=== PATIENT | male | born 1975 | race Caucasian/White ===

== ENCOUNTER 2022-03-03 22:46 | Inpatient (IN) ==
[2022-03-03] MEDS ORDERED: *HR* Etomidate 20 MG/10 ML AMPUL IVP ONE (23:01)
[2022-03-03] MEDS ORDERED: *HR* Succinylcholine 200 MG/10 ML VIAL IVP ONE (23:01)
[2022-03-03 23:12] LABS: Basophils % 0.4 %; Immature Granulocytes % 0.4 % (0-4); Red Cell Distribution Width 13.2 % (11.5-14.5)
[2022-03-03 23:13] LABS: Basophils # 0.1 K/mcL (0.0-0.2); Hemoglobin 16.9 g/dL (12.9-16.9); Lymphocytes # 1.1 K/mcL (0.6-4.6); Lymphocytes % 8.5 %; Mean Corpuscular HGB Conc 25.9 g/dL (31.6-35.5); Mean Corpuscular Hemoglobin 27.2 pg (28.0-33.3); Mean Corpuscular Volume 105.2 fL (83.0-100.0); Mean Platelet Volume 12.6 fL (9.4-12.4); Monocytes # 0.8 K/mcL (0.0-1.3); Monocytes % 6.3 %; Neutrophils # 10.7 K/mcL (1.6-8.9); Platelet Count 410 K/mcL (140-400); Red Blood Count 6.21 M/mcL (4.19-5.50); Segmented Neutrophils % 84.4 %; White Blood Count 12.7 K/mcL (4.3-11.1)
[2022-03-03] MEDS ORDERED: *HR* Midazolam HCl 2 MG/2 ML VIAL IVP ONE (23:14)
[2022-03-03] MEDS ORDERED: *HR* Midazolam HCl 5 MG/5 ML VIAL IVP ONE ×2 (23:15→23:30)
[2022-03-03] MEDS ORDERED: *HR* FentaNYL (PF) 100 MCG/2 ML VIAL ONE (23:16)
[2022-03-03] MEDS: *HR* FentaNYL (PF) 100 MCG/2 ML VIAL IVP ONE ×2 (23:19→23:21)
[2022-03-03 23:28] LABS: Amphetamine Screen,Urine Negative ng/mL (Cutoff=1000); Barbiturate Screen,Urine Negative ng/mL (Cutoff=200); Benzodiazepines Screen,Urine Negative ng/mL (Cutoff=200); Cannabinoid Screen,Urine Negative ng/mL (Cutoff = 50); Cocaine Screen,Urine Negative ng/mL (Cutoff= 300); Opiate Screen,Urine Negative ng/mL (Cutoff=300); Phencyclidine Screen,Urine Negative ng/mL (Cutoff=25)
[2022-03-03] MEDS: 0.9 % Sodium Chloride 1,000 ML IVC SCH (23:31)
[2022-03-03 23:33] LABS: ABG Base Excess -1 mEq/L (-2 to 3); ABG HCO3 26 mEq/L (21-27); ABG Oxygen Saturation 100 % (95-98); ABG PCO2 52 mmHg (35-45); ABG PH 7.32 pH Units (7.32-7.45); ABG PO2 534 mmHg (85-104); ABG TCO2 28 mEq/L (20-26); Blood Gas Modality ASSIST CONTROL; Blood Gas VT 500 cc
[2022-03-03 23:38] LABS: Bilirubin,Urine Negative (Negative); Blood,Urine Trace (Negative); Clarity,Urine Clear (Clear); Color,Urine Colorless (Yellow); Glucose,Urine (UA) >=1000 mg/dL (Normal); Ketones,Urine Negative (Negative); Leukocyte Esterase,Urine Negative (Negative); Mucus,Urine Few per lpf (None-Few); Nitrite,Urine Negative (Negative); Protein,Urine Negative (Neg-Trace); RBC,Urine 0-3 per hpf (0-3); Specific Gravity,Urine > 1.030 (1.010-1.025); Urobilinogen,Urine Normal (Normal); WBC,Urine 0-3 per hpf (0-3)
[2022-03-03 23:48] LABS: Hematocrit 65.3 % (37.5-50.1)
[2022-03-03 23:50] LABS: Hypochromasia Present (Not Present); Platelet Estimate Normal (Normal)
[2022-03-03] MEDS ORDERED: *HR* LORazepam 2 MG/ML VIAL IVP ONE (23:51)
[2022-03-03] MEDS ORDERED: *HR* LORazepam 2 MG/ML VIAL ONE (23:51)
[2022-03-04 00:10] LABS: Alanine Aminotransferase 67 Units/L (7-52); Albumin 4.7 g/dL (3.5-5.7); Albumin/Globulin Ratio 1.3 (1.1-2.2); Alkaline Phosphatase 236 Units/L (34-104); Aspartate Amino Transferase 35 Units/L (13-39); BUN/Creatinine Ratio 25 (6-26); Bilirubin,Total 0.5 mg/dL (0.3-1.0); Blood Urea Nitrogen 63 mg/dL (6-20); Calcium 9.7 mg/dL (8.6-10.3); Carbon Dioxide 20 mEq/L (23-29); Chloride 77 mEq/L (98-107); Globulin 3.7 g/dL (2.4-3.5); Magnesium 3.2 mg/dL (1.6-2.6); Potassium 6.1 mEq/L (3.5-5.1); Sodium 119 mEq/L (136-145); Thyroid Stimulating Hormone 0.391 mcIU/mL (0.340-5.600); Total Protein 8.4 g/dL (6.4-8.9); Troponin I 0.05 ng/mL (< 0.04); eGFR For African Americans 33 (> 60); eGFR For Non-African Americans 27 (> 60)
[2022-03-04] MEDS ORDERED: Insulin Regular, Human 100 UNIT/ML IV ONE (00:14)
[2022-03-04 00:24] LABS: Influenza A PCR Negative (Negative); Influenza B PCR Negative (Negative); Resp. Syncytial Virus PCR Negative (Negative)
[2022-03-04 00:25] LABS: SARS-CoV-2 by PCR (In House) Negative (Negative)
[2022-03-04] MEDS ORDERED: cefTRIAXone 1,000 MG in 0.9 % Sodium Chloride Mini Bag 100 ML IVPB ONE (00:27)
[2022-03-04] MEDS: 0.9 % Sodium Chloride 1,000 ML IVC SCH ×14 (00:33→21:33)
[2022-03-04 00:36] LABS: Glucose 2100 mg/dL (70-105); Osmolality,Calculated 377 (280-300); Salicylate < 2.5 mg/dL (15.0-30.0)
[2022-03-04] MEDS ORDERED: Naloxone 0.4 MG/ML INJ IVP PRN (00:55)
[2022-03-04] MEDS: Midazolam HCl 50 MG/50 ML IV.SOLN IVC SCH ×3 (01:02→20:07)
[2022-03-04] MEDS ORDERED: Insulin Human Regular 4 UNIT in 0.9 % Sodium Chloride 10 ML IV ONE (01:19)
[2022-03-04] MEDS: FentaNYL (PF) 1,000 MCG/100 ML IV.SOLN IVC SCH ×3 (01:27→20:08)
[2022-03-04] MEDS ORDERED: Acetaminophen 650 MG RECTAL SUPP RC ONE (01:28)
[2022-03-04 01:46] LABS: Creatine Kinase 932 Units/L (30-223)
[2022-03-04 01:53] LABS: Estimated Average Glucose 401 mg/dl; Hemoglobin A1C 15.6 %
[2022-03-04] MEDS ORDERED: D5% in 0.45% NACL 1,000 ML IVC PRN (02:10)
[2022-03-04] MEDS ORDERED: *HR* Dextrose 50 % in Water (Syg) 50 ML SYRINGE IVP PRN ×2 (02:10→11:10)
[2022-03-04] MEDS ORDERED: Insulin Regular, Human 100 UNIT/ML IV PRN (02:10)
[2022-03-04] MEDS ORDERED: 0.9 % Sodium Chloride w KCl 20 MEQ/1,000 ML MLS IVC PRN (02:15)
[2022-03-04] MEDS ORDERED: 0.45 % Sodium Chloride w/KCl 20 MEQ/1,000 ML MLS IVC PRN (02:15)
[2022-03-04] MEDS ORDERED: Artificial Tears SOLN 15 ML BOTTLE BOTH EYES PRN (03:52)
[2022-03-04 04:14] LABS: Calcium 9.5 mg/dL (8.6-10.3); Potassium 3.8 mEq/L (3.5-5.1)
[2022-03-04] MEDS: Artificial Tears SOLN 15 ML BOTTLE BOTH EYES SCH ×6 (04:38→23:26)
[2022-03-04 04:43] LABS: ABG Base Excess -2 mEq/L (-2 to 3); ABG HCO3 24 mEq/L (21-27); ABG Oxygen Saturation 99 % (95-98); ABG PCO2 43 mmHg (35-45); ABG PH 7.36 pH Units (7.32-7.45); ABG PO2 144 mmHg (85-104); ABG TCO2 25 mEq/L (20-26); Blood Gas Modality AF; Blood Gas VT 550 cc
[2022-03-04] MEDS: Piperacillin/Tazobactam 3.375 GM in 0.9 % Sodium Chloride Mini Bag 100 ML IVPB SCH ×3 (04:51→19:37)
[2022-03-04] MEDS ORDERED: *HR* Metoprolol 5 MG/5 ML VIAL IVP ONE (05:46)
[2022-03-04] MEDS ORDERED: *HR* Heparin 5,000 UNIT/ML VIAL SQ SCH (06:00)
[2022-03-04 06:49] LABS: Calcium 9.2 mg/dL (8.6-10.3)
[2022-03-04 07:00] LABS: Potassium 4.3 mEq/L (3.5-5.1)
[2022-03-04] MEDS: Chlorhexidine Rinse 15 ML MOUTHWASH MM SCH ×2 (07:52→19:37)
[2022-03-04 08:56] LABS: Calcium 9.4 mg/dL (8.6-10.3); Potassium 4.6 mEq/L (3.5-5.1)
[2022-03-04] MEDS ORDERED: Vancomycin 1,500 MG/265 ML IV.SOLN IVPB ONE (09:00)
[2022-03-04 09:05] LABS: Adenovirus Not Detected (Not Detect); Bordetella Pertussis Not Detected (Not Detect); Chlamydophila pneumoniae Not Detected (Not Detect); Coronavirus 229E Not Detected (Not Detect); Coronavirus HKU1 Not Detected (Not Detect); Coronavirus NL63 Not Detected (Not Detect); Coronavirus OC43 Not Detected (Not Detect); Human Metapneumovirus Not Detected (Not Detect); Human Rhinovirus/Enterovirus Not Detected (Not Detect); Influenza A Subtype 2009 H1 Not Detected (Not Detect); Influenza B Not Detected (Not Detect); Mycoplasma pneumoniae Not Detected (Not Detect); Parainfluenza Virus 1 Not Detected (Not Detect); Parainfluenza Virus 2 Not Detected (Not Detect); Parainfluenza Virus 3 Not Detected (Not Detect); Parainfluenza Virus 4 Not Detected (Not Detect); Respiratory Syncytial Virus Not Detected (Not Detect); SARS-CoV-2 Not Detected (Not Detect)
[2022-03-04] MEDS: D5% in 0.45% NACL w KCl 20 MEQ/1,000 ML MLS IVC PRN ×3 (10:08→22:20)
[2022-03-04] MEDS ORDERED: D5% in Water 1,000 ML IVC PRN (11:10)
[2022-03-04] MEDS ORDERED: Dextrose Gel 15 GM/37.5 ML TUBE PO PRN ×2 (11:10)
[2022-03-04] MEDS ORDERED: 0.9 % Sodium Chloride 1,000 ML IVC ONE ×2 (11:13→12:41)
[2022-03-04] MEDS: Pantoprazole 40 MG VIAL IVP SCH (11:31)
[2022-03-04] MEDS: Insulin LISPRO 300 UNITS/3 ML VIAL SUBQ SCH ×5 (11:36→19:37)
[2022-03-04 12:02] LABS: Potassium 4.4 mEq/L (3.5-5.1); Troponin I 0.22 ng/mL (< 0.04)
[2022-03-04] MEDS ORDERED: *HR* Heparin 5,000 UNIT/ML VIAL IVP ONE (12:03)
[2022-03-04] MEDS ORDERED: *HR* Heparin 5,000 UNIT/ML VIAL IVP PRN ×2 (12:03)
[2022-03-04] MEDS ORDERED: Heparin 25,000UNIT/250ML 1/2NS 25,000 UNIT/250 ML IV.SOLN IVC SCH (12:15)
[2022-03-04 13:41] LABS: Troponin I 0.1 ng/mL (< 0.04)
[2022-03-04 14:16] LABS: Hematocrit 42.8 % (37.5-50.1); Mean Corpuscular HGB Conc 33.4 g/dL (31.6-35.5); Mean Platelet Volume 12.3 fL (9.4-12.4); Platelet Count 216 K/mcL (140-400); Red Cell Distribution Width 14.1 % (11.5-14.5); White Blood Count 14.8 K/mcL (4.3-11.1)
[2022-03-04 14:24] LABS: Heparin anti-factor XA UFH 0.83 IU/mL (0.30-0.70); INR 1.2; Prothrombin Time 12.9 Seconds (9.4-12.1)
[2022-03-04 14:28] LABS: Hemoglobin 14.3 g/dL (12.9-16.9); Mean Corpuscular Volume 83.9 fL (83.0-100.0)
[2022-03-04 15:50] LABS: Calcium 7.8 mg/dL (8.6-10.3); Troponin I 0.16 ng/mL (< 0.04)
[2022-03-04 18:38] LABS: Potassium 3.7 mEq/L (3.5-5.1)
[2022-03-04] MEDS ORDERED: Perflutren Lipid Microsphere 1.3 ML in 0.9 % Sodium Chloride 8.7 ML IVP PRN (19:11)
[2022-03-04 21:39] LABS: Calcium 7.7 mg/dL (8.6-10.3); Potassium 3.7 mEq/L (3.5-5.1)
[2022-03-05] MEDS ORDERED: Dexmedetomidine HCl 400 MCG/100 ML MLS IVC ONE (00:44)
[2022-03-05] MEDS: Dexmedetomidine HCl 400 MCG/100 ML MLS IVC SCH ×5 (00:53→21:02)
[2022-03-05] MEDS ORDERED: Insulin Human Regular 250 UNIT in 0.9 % Sodium Chloride 247.5 ML IVC SCH (01:15)
[2022-03-05] MEDS: 0.9 % Sodium Chloride 1,000 ML IVC SCH ×6 (01:32→07:59)
[2022-03-05 02:02] LABS: Potassium 3.5 mEq/L (3.5-5.1)
[2022-03-05] MEDS: FentaNYL (PF) 1,000 MCG/100 ML IV.SOLN IVC SCH (02:31)
[2022-03-05] MEDS: D5% in 0.45% NACL w KCl 20 MEQ/1,000 ML MLS IVC PRN ×2 (02:32→07:26)
[2022-03-05] MEDS: Artificial Tears SOLN 15 ML BOTTLE BOTH EYES SCH ×6 (03:36→20:00)
[2022-03-05] MEDS: Piperacillin/Tazobactam 3.375 GM in 0.9 % Sodium Chloride Mini Bag 100 ML IVPB SCH (03:39)
[2022-03-05] MEDS: Insulin LISPRO 300 UNITS/3 ML VIAL SUBQ SCH ×8 (03:39→23:03)
[2022-03-05 04:18] LABS: Basophils # 0.1 K/mcL (0.0-0.2); Basophils % 0.5 %; Eosinophils # 0.1 K/mcL (0.0-0.6); Eosinophils % 0.4 %; Hematocrit 38.7 % (37.5-50.1); Hemoglobin 12.6 g/dL (12.9-16.9); Immature Granulocytes % 0.4 % (0-4); Lymphocytes % 20.9 %; Mean Corpuscular HGB Conc 32.6 g/dL (31.6-35.5); Mean Corpuscular Hemoglobin 27.1 pg (28.0-33.3); Mean Corpuscular Volume 83.2 fL (83.0-100.0); Monocytes # 1.3 K/mcL (0.0-1.3); Monocytes % 8.7 %; Platelet Count 172 K/mcL (140-400); Red Blood Count 4.65 M/mcL (4.19-5.50); Red Cell Distribution Width 14.6 % (11.5-14.5); Segmented Neutrophils % 69.1 %; White Blood Count 14.5 K/mcL (4.3-11.1)
[2022-03-05 04:30] LABS: ABG Base Excess -5 mEq/L (-2 to 3); ABG HCO3 20 mEq/L (21-27); ABG Oxygen Saturation 97 % (95-98); ABG PCO2 34 mmHg (35-45); ABG PH 7.38 pH Units (7.32-7.45); ABG PO2 96 mmHg (85-104); ABG TCO2 21 mEq/L (20-26); Blood Gas Modality AF; Blood Gas VT 550 cc
[2022-03-05 05:22] LABS: Creatine Kinase 3562 Units/L (30-223); Vancomycin,Random 10 mcg/mL
[2022-03-05] MEDS: Midazolam HCl 50 MG/50 ML IV.SOLN IVC SCH (05:35)
[2022-03-05] MEDS: Pantoprazole 40 MG VIAL IVP SCH (07:20)
[2022-03-05] MEDS: Chlorhexidine Rinse 15 ML MOUTHWASH MM SCH ×2 (07:20→19:50)
[2022-03-05 08:24] LABS: ABG Base Excess -5 mEq/L (-2 to 3); ABG HCO3 21 mEq/L (21-27); ABG Oxygen Saturation 97 % (95-98); ABG PCO2 39 mmHg (35-45); ABG PH 7.34 pH Units (7.32-7.45); ABG PO2 95 mmHg (85-104); ABG TCO2 22 mEq/L (20-26); Blood Gas Modality CPAP/PS; Blood Gas Pressure Support 5 cm H2O
[2022-03-05] MEDS ORDERED: Vancomycin 1,500 MG/265 ML IV.SOLN IVPB ONE (09:00)
[2022-03-05] MEDS: Cefepime HCl 1,000 MG in 0.9 % Sodium Chloride 10 ML IVP SCH ×3 (09:37→23:03)
[2022-03-05 10:15] LABS: Calcium 7.8 mg/dL (8.6-10.3); Potassium 3.7 mEq/L (3.5-5.1)
[2022-03-05] MEDS ORDERED: D5% in 0.45% NACL 1,000 ML IVC SCH (11:15)
[2022-03-05] MEDS ORDERED: D5% in 0.2% NACL 500 ML IVC SCH (11:30)
[2022-03-05 13:15] LABS: VBG Ionized Calcium 1.17 mmol/L (1.15-1.35)
[2022-03-05] MEDS: D5% in 0.2% NACL 500 ML IVC SCH ×3 (14:58→21:02)
[2022-03-05 15:24] LABS: Calcium 7.8 mg/dL (8.6-10.3); Potassium 4.2 mEq/L (3.5-5.1)
[2022-03-05] MEDS: Insulin DETEMIR 100 UNIT/ML X5UNITS SUBQ SCH (19:50)
[2022-03-06] MEDS: Dexmedetomidine HCl 400 MCG/100 ML MLS IVC SCH ×2 (00:26→04:08)
[2022-03-06] MEDS: D5% in 0.2% NACL 500 ML IVC SCH ×2 (03:11→15:36)
[2022-03-06 03:21] LABS: Basophils # 0.1 K/mcL (0.0-0.2); Basophils % 0.6 %; Eosinophils # 0.2 K/mcL (0.0-0.6); Eosinophils % 1.3 %; Hematocrit 37.1 % (37.5-50.1); Hemoglobin 12.1 g/dL (12.9-16.9); Immature Granulocytes % 0.5 % (0-4); Lymphocytes # 2.6 K/mcL (0.6-4.6); Lymphocytes % 20.5 %; Mean Corpuscular HGB Conc 32.6 g/dL (31.6-35.5); Mean Corpuscular Volume 82.8 fL (83.0-100.0); Monocytes # 0.8 K/mcL (0.0-1.3); Monocytes % 6.1 %; Neutrophils # 9.2 K/mcL (1.6-8.9); Platelet Count 156 K/mcL (140-400); Red Blood Count 4.48 M/mcL (4.19-5.50); Red Cell Distribution Width 14.7 % (11.5-14.5); White Blood Count 12.9 K/mcL (4.3-11.1)
[2022-03-06] MEDS: Insulin LISPRO 300 UNITS/3 ML VIAL SUBQ SCH ×5 (03:32→21:50)
[2022-03-06 03:54] LABS: Calcium 8.7 mg/dL (8.6-10.3); Potassium 3.6 mEq/L (3.5-5.1)
[2022-03-06] MEDS ORDERED: D5% in 0.2% NACL 500 ML IVC SCH ×2 (05:37→10:15)
[2022-03-06] MEDS: Insulin DETEMIR 100 UNIT/ML X5UNITS SUBQ SCH ×2 (07:48→21:53)
[2022-03-06] MEDS: Pantoprazole 40 MG VIAL IVP SCH (07:49)
[2022-03-06] MEDS: Cefepime HCl 1,000 MG in 0.9 % Sodium Chloride 10 ML IVP SCH (07:49)
[2022-03-06] MEDS: Chlorhexidine Rinse 15 ML MOUTHWASH MM SCH (07:49)
[2022-03-06] MEDS: Artificial Tears SOLN 15 ML BOTTLE BOTH EYES SCH ×4 (07:50→21:59)
[2022-03-06] MEDS ORDERED: *HR* Heparin 5,000 UNIT/ML VIAL SQ SCH (09:00)
[2022-03-06] MEDS ORDERED: Vancomycin 1,750 MG/517.5 ML IV.SOLN IVPB SCH (11:00)
[2022-03-06] MEDS ORDERED: *HR* Dextrose 50 % in Water (Syg) 50 ML SYRINGE IVP PRN (15:22)
[2022-03-06] MEDS ORDERED: D5% in Water 1,000 ML IVC PRN (15:22)
[2022-03-06] MEDS ORDERED: Naloxone 0.4 MG/ML INJ IVP PRN (15:22)
[2022-03-06] MEDS ORDERED: Dextrose Gel 15 GM/37.5 ML TUBE PO PRN ×2 (15:22)
[2022-03-06] MEDS ORDERED: D5% in 0.45% NACL w KCl 20 MEQ/1,000 ML MLS IVC PRN (15:22)
[2022-03-06] MEDS ORDERED: Artificial Tears SOLN 15 ML BOTTLE BOTH EYES PRN (15:22)
[2022-03-06] MEDS ORDERED: D5% in 0.45% NACL 1,000 ML IVC PRN (15:22)
[2022-03-06] MEDS: *HR* Heparin 5,000 UNIT/ML VIAL SQ SCH (21:53)
[2022-03-07] MEDS ORDERED: Ondansetron 4 MG/2 ML VIAL IVP ONE (00:42)
[2022-03-07] MEDS: Insulin LISPRO 300 UNITS/3 ML VIAL SUBQ SCH ×6 (00:54→22:16)
[2022-03-07] MEDS: Artificial Tears SOLN 15 ML BOTTLE BOTH EYES SCH ×6 (01:01→22:13)
[2022-03-07] MEDS: D5% in 0.2% NACL 500 ML IVC SCH ×3 (02:00→23:02)
[2022-03-07] MEDS: *HR* Heparin 5,000 UNIT/ML VIAL SQ SCH ×3 (05:15→22:16)
[2022-03-07] MEDS: Insulin DETEMIR 100 UNIT/ML X5UNITS SUBQ SCH ×2 (08:20→22:15)
[2022-03-07] MEDS: Pantoprazole 40 MG VIAL IVP SCH (08:21)
[2022-03-07 11:19] LABS: Basophils % 0.3 %; Eosinophils # 0.5 K/mcL (0.0-0.6); Eosinophils % 4.2 %; Hematocrit 37.7 % (37.5-50.1); Hemoglobin 12.7 g/dL (12.9-16.9); Immature Granulocytes % 0.9 % (0-4); Lymphocytes # 2.2 K/mcL (0.6-4.6); Lymphocytes % 20.5 %; Mean Corpuscular HGB Conc 33.7 g/dL (31.6-35.5); Mean Corpuscular Hemoglobin 27.1 pg (28.0-33.3); Mean Corpuscular Volume 80.4 fL (83.0-100.0); Mean Platelet Volume 12.5 fL (9.4-12.4); Monocytes # 0.6 K/mcL (0.0-1.3); Monocytes % 5.7 %; Neutrophils # 7.3 K/mcL (1.6-8.9); Platelet Count 149 K/mcL (140-400); Red Blood Count 4.69 M/mcL (4.19-5.50); Segmented Neutrophils % 68.4 %; White Blood Count 10.6 K/mcL (4.3-11.1)
[2022-03-07 11:42] LABS: BUN/Creatinine Ratio 16 (6-26); Blood Urea Nitrogen 18 mg/dL (6-20); Calcium 8.5 mg/dL (8.6-10.3); Carbon Dioxide 23 mEq/L (23-29); Chloride 102 mEq/L (98-107); Creatine Kinase 1645 Units/L (30-223); Glucose 230 mg/dL (70-105); Osmolality,Calculated 289 (280-300); Potassium 3.3 mEq/L (3.5-5.1); Sodium 135 mEq/L (136-145); eGFR For African Americans > 60 (> 60); eGFR For Non-African Americans > 60 (> 60)
[2022-03-08] MEDS: Artificial Tears SOLN 15 ML BOTTLE BOTH EYES SCH ×4 (01:12→12:46)
[2022-03-08] MEDS: Insulin LISPRO 300 UNITS/3 ML VIAL SUBQ SCH ×4 (01:30→12:47)
[2022-03-08] MEDS: *HR* Heparin 5,000 UNIT/ML VIAL SQ SCH (06:11)
[2022-03-08] MEDS: D5% in 0.2% NACL 500 ML IVC SCH (06:16)
[2022-03-08 07:39] LABS: Basophils % 0.3 %; Eosinophils # 0.4 K/mcL (0.0-0.6); Eosinophils % 4.4 %; Hematocrit 37.4 % (37.5-50.1); Hemoglobin 12.4 g/dL (12.9-16.9); Immature Granulocytes % 0.9 % (0-4); Lymphocytes # 2.1 K/mcL (0.6-4.6); Lymphocytes % 23.9 %; Mean Corpuscular HGB Conc 33.2 g/dL (31.6-35.5); Mean Corpuscular Volume 81.5 fL (83.0-100.0); Mean Platelet Volume 12.6 fL (9.4-12.4); Monocytes # 0.7 K/mcL (0.0-1.3); Monocytes % 7.6 %; Neutrophils # 5.4 K/mcL (1.6-8.9); Platelet Count 171 K/mcL (140-400); Red Blood Count 4.59 M/mcL (4.19-5.50); Red Cell Distribution Width 13.5 % (11.5-14.5); Segmented Neutrophils % 62.9 %; White Blood Count 8.6 K/mcL (4.3-11.1)
[2022-03-08 07:52] LABS: Alanine Aminotransferase 70 Units/L (7-52); Albumin 3.2 g/dL (3.5-5.7); Albumin/Globulin Ratio 1.1 (1.1-2.2); Alkaline Phosphatase 161 Units/L (34-104); Aspartate Amino Transferase 65 Units/L (13-39); BUN/Creatinine Ratio 14 (6-26); Bilirubin,Total 0.4 mg/dL (0.3-1.0); Blood Urea Nitrogen 15 mg/dL (6-20); Calcium 8.6 mg/dL (8.6-10.3); Carbon Dioxide 24 mEq/L (23-29); Chloride 103 mEq/L (98-107); Creatine Kinase 1163 Units/L (30-223); Globulin 2.8 g/dL (2.4-3.5); Glucose 165 mg/dL (70-105); Magnesium 1.8 mg/dL (1.6-2.6); Osmolality,Calculated 289 (280-300); Phosphorous 2.9 mg/dL (2.7-4.5); Potassium 3.2 mEq/L (3.5-5.1); Sodium 137 mEq/L (136-145); eGFR For African Americans > 60 (> 60); eGFR For Non-African Americans > 60 (> 60)
[2022-03-08] MEDS: Pantoprazole 40 MG VIAL IVP SCH (08:13)
[2022-03-08] MEDS: Insulin DETEMIR 100 UNIT/ML X5UNITS SUBQ SCH (08:29)
[2022-03-08] MEDS ORDERED: *HR* OxyCODONE/APAP 5/325 TABLET PO PRN (10:17)
[2022-03-08 11:47] VITALS: BP 146/85; PULSE 78; TEMP 97.6; O2SAT 94
== END 2022-03-08 16:08 | disposition home or self-care (01) | DRG 720 ==
LOC: EMEROOARM 22:46 → SUATTDRO 03-04 01:21 → ICNU 03-04 01:21 → 3ANU 03-06 18:31
PROVIDERS: ADMIT Internal Medicine; ATTEND Internal Medicine